=== PATIENT | male | born 1980 | race Caucasian/White ===

== ENCOUNTER 2018-11-09 19:48 | Emergency (ER) | payer BC ==
[~2018-11-09] VITALS: Ht 180.3 cm; Wt 95.2 kg
[~2018-11-09 19:48] MED LIST: HYDACE5 PO; OMEP20ER PO; ONDA4 PO; RXONDA4ODT MM
== END 2018-11-09 21:39 | disposition home or self-care (01) ==
LOC: ER 19:48
DX: R07.9 Chest pain, unspecified (principal)
CPT/HCPCS: 71046; 93005; 93010; 99283-25

== ENCOUNTER 2023-12-22 20:03 | Emergency (ER) | payer OTHER ==
[~2023-12-22] VITALS: Ht 177.8 cm; Wt 79.4 kg
[2023-12-22] MEDS ORDERED: Nitroglycerin 0.4 MG SUBL SL ONE (22:15)
[2023-12-22] MEDS ORDERED: Ondansetron HCl 2 MG / ML 2ML Vial IV ONE (22:45)
[2023-12-22] MEDS ORDERED: Glucagon 1 MG/KIT VIAL IV ONE (22:45)
[2023-12-22] MEDS ORDERED: Ketorolac Tromethamine 30mg Vial IV ONE (23:05)
[2023-12-22] MEDS ORDERED: Metoclopramide HCl 5MG / ML 2ML Vial IV ONE (23:25)
[2023-12-22] MEDS ORDERED: NS 1,000 ML IV SCH (23:30)
[2023-12-22 23:45] LABS: BASOPHILS ABSOLUTE AUTO 0.04 K/mm3 (0.00-0.23); BASOPHILS PERCENT AUTO 1 % (0-2); EOSINOPHILS ABSOLUTE AUTO 0.11 K/mm3 (0.00-0.68); EOSINOPHILS PERCENT AUTO 2 % (0-6); Hematocrit 43.3 % (37.0-53.0); Hemoglobin 15.1 g/dL (13.5-17.5); IMMATURE GRAN ABSOLUTE AUTO 0.01 K/mm3 (0.00-0.10); IMMATURE GRAN PERCENT AUTO 0 % (0-1); LYMPHOCYTES ABSOLUTE AUTO 0.81 K/mm3 (0.84-5.20); LYMPHOCYTES PERCENT AUTO 17 % (21-46); MONOCYTES ABSOLUTE AUTO 0.46 K/mm3 (0.16-1.47); MONOCYTES PERCENT AUTO 10 % (4-13); Mean Corpuscular HGB 34.3 pg (26.0-34.0); Mean Corpuscular HGB Conc 34.9 g/dL (31.5-36.5); Mean Corpuscular Volume 98 fL (80-100); Mean Platelet Volume 9.1 fL (9.1-12.4); NEUTROPHILS ABSOLUTE AUTO 3.28 K/mm3 (1.96-9.15); NEUTROPHILS PERCENT AUTO 70 % (41-73); Platelet Count 275 K/mm3 (150-400); RDW Coefficient Variation 11.9 % (11.7-14.2); RDW Standard Deviation 43.4 fL (35.1-46.3); White Blood Cell Count 4.71 K/mm3 (4.00-11.30)
[2023-12-22 23:56] LABS: Albumin, Blood 4.5 g/dL (3.4-5.0); Albumin/Globulin Ratio 1.3 (0.8-1.8); Bilirubin, Total 0.6 mg/dL (0.1-1.0); Calcium, Blood 9.8 mg/dL (8.5-10.1); Creatinine, Blood 0.89 mg/dL (0.60-1.20); Globulin, Blood 3.5 g/dL (2.2-4.0); Potassium, Blood 4.4 mmol/L (3.5-5.5)
[2023-12-23] MEDS ORDERED: Diazepam 5 MG / ML 2ML SYR IV ONE (00:55)
[2023-12-23] MEDS ORDERED: HYDROmorphone HCl/Pf 1MG SYR IV ONE (01:05)
[2023-12-23 01:34] VITALS: BP 138/91
== END 2023-12-23 01:48 | disposition left against medical advice (07) ==
LOC: ER 20:03
PROVIDERS: Emergency Medicine
DX: T18.128A Food in esophagus causing other injury, initial encounter (principal); R11.2 Nausea with vomiting, unspecified; R10.13 Epigastric pain
CPT/HCPCS: 71046; 80053; 85025; 86850; 86900; 86901; 96374; 96375; 99284-25; A9270; J1170; J1610; J1885; J2405; J2765; J3360; J7030